=== PATIENT | female | born 1950 | race Caucasian/White ===

== ENCOUNTER → 2024-05-28 | Day surgery (SDC) | payer OTHER ==
--- NOTE | 2024-05-28 11:50 | RAD REPORT ---
PROCEDURE: ULTRASOUND GUIDED BIOPSY Pre-procedure diagnosis: Right thyroid progressive nodule Post-procedure diagnosis: Same as above. CLINICAL INDICATION: Histopathologic diagnosis and molecular characterization. Female, 73 years old. E04.1 COMPARISON: Thyroid ultrasound 05/05/2024 Previous biopsy of same target: No record Additional clinical history: None. COMPLICATIONS: No immediate complications. IMPRESSION: Percutaneous ultrasound-guided FNA biopsy of dominant right thyroid nodule Additional procedure(s): None. PLAN: Specimen sent for evaluation. PROCEDURE DETAILS: Consent: Informed consent for the procedure including risks, benefits and alternatives was obtained a nd time-out was performed prior to the procedure. Preparation: The site was prepared and draped using all elements of maximal sterile barrier technique including sterile gloves, sterile gown, cap, mask, large sterile sheet, sterile ultrasound probe cover as needed, hand hygiene and cutaneous antisepsis with 2% chlorhexidine. Sedation: None provided. Imaging prior to biopsy: The patient was positioned supine and initial imaging was performed. Biopsy: Local anesthesia was administered. Under sonographic guidance, multiple 25-gauge needles were advanced to the target and FNA sampling was performed. The biopsy needles were removed and a sterile dressing was applied. Number of specimens: 5 passes On-site biopsy touch preparation: None. Additional sampling description: Preliminary assessment of sample adequacy: Not applicable. Tract embolization: None. Post-biopsy imaging findings: No immediate complications seen. Contrast used: None. Estimated blood loss: Less than 10 mL.
== END ==
LOC: FNA 09:31
PROVIDERS: ATTEND Otolaryngology
PROC: 0GBH3ZX Excision of Right Thyroid Gland Lobe, Percutaneous Approach, Diagnostic (ICD-10-PCS; principal; 2024-05-28)
DX: E04.1 Nontoxic single thyroid nodule (principal)
CPT/HCPCS: 88162